=== PATIENT | female | born 1960 ===

== ENCOUNTER 2018-07-16 05:40 | Emergency (ER) | payer MEDICARE, MEDICAID ==
[2018-07-16 05:41] VITALS: BMI 34.7
[2018-07-16 06:01] VITALS: BP 157/90; PULSE 68; RESP 17; TEMP 100.6; O2SAT 100
--- NOTE | 2018-07-16 07:32 | ED PDOC ---
Arrival/HPI - General Chief Complaint: Pain, Chronic Time Seen by Provider: 07/16/18 07:18 Past Medical History - Past History Past History: Non-Contributing - Infectious Disease Hx of Infectious Diseases: ESL - Cardiac Hx Cardiac Arrhythmia: Yes Hx Hypertension: Yes Hx Pacemaker: Yes - Pulmonary Hx Respiratory Disorders: No - Neurological Hx Migraine: Yes Hx Multiple Sclerosis: Yes - HEENT Hx HEENT Disorder: No - Renal Hx Kidney Stones: Yes - Endocrine/Metabolic Hx Endocrine Disorders: Yes Hx Diabetes Mellitus Type 2: Yes - Hematological/Oncological Hx Anemia: Yes - Integumentary Hx Dermatological Disorder: No - Musculoskeletal/Rheumatological Hx Arthritis: Yes Hx Fractures: Yes (L RIB) Hx Osteoporosis: Yes - Gastrointestinal Hx Gastrointestinal Disorders: Yes (COLITIS) - Genitourinary/Gynecological Hx Genitourinary Disorders: Yes (MULTIPLE UTIS) Hx Reproductive Disorders: Yes (VAGINAL ITCH STILL) - Psychiatric Hx Anxiety: Yes Hx Bipolar Disorder: Yes Hx Depression: Yes Hx Substance Use: No - Surgical History Hx Gastric Bypass Surgery: Yes Hx Hysterectomy: Yes Other/Comment: pacemaker; fibroids removal; benign tumor removed from breast - Anesthesia Hx Anesthesia: Yes Hx Anesthesia Reactions: No Hx Malignant Hyperthermia: No Family/Social History Smoking Status: Never Smoked Hx Alcohol Use: No Hx Substance Use: No Hx Substance Use Treatment: No Allergies/Home Meds Allergies/Adverse Reactions: Allergies levofloxacin [From Levaquin] Allergy (Verified 07/14/18 16:34) RASH Physical Exam Vital Signs Temp Pulse Resp BP Pulse Ox 07/16/18 05:51 100.6 F H 68 17 157/90 H 100 Medical Decision Making - Lab Interpretations Lab Results: Lab Results 07/16/18 07:02: POC Glucose (mg/dL) 78 Disposition/Present on Arrival - Present on Arrival History of DVT/PE: No History of Uncontrolled Diabetes: No Urinary Catheter: No History Surgical Site Infection Following: None - Disposition
--- NOTE | 2018-07-16 07:39 | ED PDOC ---
HPI: General Adult Time Seen by Provider: 07/16/18 07:18 Chief Complaint (Nursing): Pain, Chronic Chief Complaint (Provider): Pain, Chronic History Per: Patient History/Exam Limitations: no limitations Additional Complaint(s): 58 years old female with history of multiple sclerosis, hypertension and depression presents to the ED for evaluation of generalized bodyaches associated with falling frequently. Patient reports last time she was seen at [facility] was last and was evaluated with CTs and x-rays, which all were negative. She states she hasn't been taking her medications for MS in the last two months. PMD: Dr. Rodriguez Past Medical History Reviewed: Historical Data, Nursing Documentation, Vital Signs Vital Signs: Last Vital Signs Temp 100.6 F H 07/16/18 05:51 Pulse 68 07/16/18 05:51 Resp 17 07/16/18 05:51 BP 157/90 H 07/16/18 05:51 Pulse Ox 100 07/16/18 07:56 - Medical History PMH: Anemia, Anxiety, Arthritis, Back Problems, Bipolar Disorder, Cardia Arrhythmia, Depression, Fibromyalgia, Fractures (L RIB), HTN, Hypercholesterolemia, Kidney Stones, Migraine, Multiple Sclerosis, Osteoporosis Denies: Chronic Kidney Disease - Surgical History Surgical History: Pacemaker - Family History Family History: States: Unknown Family Hx - Social History Current smoker - smoking cessation education provided: No Alcohol: None Drugs: Denies - Immunization History Hx Tetanus Toxoid Vaccination: No - Home Medications Home Medications: Ambulatory Orders Medication Instructions Recorded Folic Acid 1 mg PO DAILY tab 05/24/18 Multimineral/Multivitamin 1 tab PO 0800 tab 05/24/18 [Therapeutic-M Tab] LORazepam [Ativan] 1 mg PO BID #28 tab 06/01/18 Pantoprazole [Protonix EC Tab] 40 mg PO 0600 #30 ect 06/01/18 Venlafaxine [Effexor XR] 150 mg PO 0800 #14 cer 06/01/18 Zaleplon [Sonata] 10 mg PO HS PRN #14 cap 06/01/18 amLODIPine [Norvasc] 5 mg PO DAILY #30 tab 06/01/18 Ibuprofen [Motrin Tab] 800 mg PO Q6 PRN #20 tab 07/14/18 traMADol [Ultram] 50 mg PO Q8 #10 tab 07/16/18 - Allergies Allergies/Adverse Reactions: Allergies Allergy/AdvReac Type Severity Reaction Status Date / Time levofloxacin [From Levaquin] Allergy RASH Verified 07/14/18 16:34 Review of Systems ROS Statement: Except As Marked, All Systems Reviewed And Found Negative Constitutional: Positive for: Other (Bodyaches) Physical Exam - Reviewed Nursing Documentation Reviewed: Yes Vital Signs Reviewed: Yes - Physical Exam Appears: Positive for: Non-toxic, No Acute Distress Head Exam: Positive for: ATRAUMATIC, NORMOCEPHALIC Skin: Positive for: Normal Color, Warm, Dry Eye Exam: Positive for: Normal appearance Neck: Positive for: Normal, Painless ROM, Supple Cardiovascular/Chest: Positive for: Regular Rate, Rhythm. Negative for: Murmur Respiratory: Positive for: Normal Breath Sounds. Negative for: Respiratory Distress Gastrointestinal/Abdominal: Positive for: Normal Exam, Soft. Negative for: Tenderness Extremity: Positive for: Normal ROM, Other (Ecchymosis of right upper extremity) . Negative for: Swelling Neurologic/Psych: Positive for: Alert, Oriented (x3). Negative for: Motor/ Sensory Deficits - Laboratory Results Result Diagrams: 07/16/18 08:25 07/16/18 08:25 - ECG O2 Sat by Pulse Oximetry: 100 (RA) Pulse Ox Interpretation: Normal Medical Decision Making Medical Decision Making: Time: 743 Initial plan: --CBC --CMP --Toradol 30 mg IVP --Zofran 4 mg IVP Scribe Attestation: Documented by Tracie Martin, acting as a scribe for Toño Julian MD. Provider Scribe Attestation: All medical record entries made by the Scribe were at my direction and personally dictated by me. I have reviewed the chart and agree that the record accurately reflects my personal performance of the history, physical exam, medical decision making, and the department course for this patient. I have also personally directed, reviewed, and agree with the discharge instructions and disposition. Disposition - Clinical Impression Clinical Impression: Multiple sclerosis exacerbation - Patient ED Disposition Is Patient to be Admitted: No Counseled Patient/Family Regarding: Studies Performed, Diagnosis, Need For Followup, Rx Given - Disposition Referrals: Pratibha Wilson MD [Staff Provider] - Disposition: Routine/Home Disposition Time: 11:15 Condition: FAIR Prescriptions: traMADol [Ultram] 50 mg PO Q8 #10 tab Instructions: Multiple Sclerosis in Adults Forms: [employer] (Frisian)
[2018-07-16 09:06] LABS: BASO % 0.3 % (0.0-2.0); EOS % 1.3 % (0.0-4.0); HEMOGLOBIN 10.1 g/dL (12.0-16.0); LYMPH # 1.4 K/uL (1.0-4.3); LYMPH % 41.6 % (20.0-40.0); MEAN CELL VOLUME 96.2 fl (81.0-99.0); MEAN CORPUSCULAR HEMOGLOBIN 31.7 pg (27.0-31.0); MEAN CORPUSCULAR HGB CONC 32.9 g/dL (33.0-37.0); MEAN PLATELET VOLUME 9.3 fl (7.2-11.7); MONO # 0.3 K/uL (0.0-0.8); MONO % 10.5 % (0.0-10.0); NEUT # 1.5 K/uL (1.8-7.0); NEUT % 46.3 % (50.0-75.0); NRBC % 0.1 % (0.0-0.0); RBC 3.18 Mil/uL (3.80-5.20); RED CELL DISTRIBUTION WIDTH 13.1 % (11.5-14.5); WHITE BLOOD COUNT 3.3 K/uL (4.8-10.8)
[2018-07-16 09:09] LABS: ALBUMIN 3.1 g/dL (3.5-5.0); ALT/SGPT 34 U/L (9-52); AST/SGOT 29 U/L (14-36); BLOOD UREA NITROGEN 18 mg/dl (7-17); CALCIUM 8.3 mg/dL (8.4-10.2); GFR NON-AFRICAN AMERICAN > 60
== END 2018-07-16 13:37 | disposition home or self-care (01) ==
LOC: H.ER 05:40
DX: G35 Multiple sclerosis (principal); E78.00 Pure hypercholesterolemia, unspecified; M79.7 Fibromyalgia; I10 Essential (primary) hypertension; R29.6 Repeated falls; Z95.0 Presence of cardiac pacemaker
CPT/HCPCS: 80053; 82948; 85025; 96374; 96375; 99283; J1885; J2405; J2930

== ENCOUNTER 2018-07-21 02:25 | Emergency (ER) | payer MEDICARE, MEDICAID ==
[2018-07-21 02:25] VITALS: BMI 34.7
--- NOTE | 2018-07-21 03:12 | ED PDOC ---
HPI: Chest Pain Time Seen by Provider: 07/21/18 02:45 Chief Complaint (Nursing): Chest Pain Chief Complaint (Provider): Chest pain History Per: Patient, EMS History/Exam Limitations: no limitations Additional Complaint(s): 58yo male, with extensive past medical history including Anemia, Anxiety, Arthritis, Back Problems, Bipolar Disorder, Cardiac Arrhythmia, Depression, Fibromyalgia, HTN, Hypercholesterolemia, Kidney Stones, Migraine, Multiple Sclerosis, brought to ER by EMS with complaints of chest pain. Patient was recently discharged from this facility 1 hour ago and was also seen on 07/14/18 and 07/16/18. In her most recent visit, patient had lower extremity US which was normal. Currently, patient states she has diffuse bodyaches and deneis any chest pain or shortness of breath. She does report she has been off her MS medications however she just got her insurance and has a follow up scheduled with a PMD as well neurologist. Past Medical History Reviewed: Historical Data, Nursing Documentation, Vital Signs Vital Signs: Last Vital Signs Temp 97.8 F 07/21/18 03:02 Pulse 66 07/21/18 04:17 Resp 16 07/21/18 03:02 BP 127/78 07/21/18 03:02 Pulse Ox 99 07/21/18 04:17 - Medical History PMH: Anemia, Anxiety, Arthritis, Back Problems, Bipolar Disorder, Cardia Arrhythmia, Depression, Fibromyalgia, Fractures (L RIB), HTN, Hypercholesterolemia, Kidney Stones, Migraine, Multiple Sclerosis, Osteoporosis Denies: Chronic Kidney Disease - Surgical History Surgical History: Pacemaker - Family History Family History: States: Unknown Family Hx - Immunization History Hx Tetanus Toxoid Vaccination: No - Home Medications Home Medications: Ambulatory Orders Medication Instructions Recorded RX: Folic Acid 1 mg PO DAILY tab 05/24/18 RX: Multimineral/Multivitamin 1 tab PO 0800 tab 05/24/18 [Therapeutic-M Tab] RX: LORazepam [Ativan] 1 mg PO BID #28 tab 06/01/18 RX: Pantoprazole [Protonix EC Tab] 40 mg PO 0600 #30 ect 06/01/18 RX: Zaleplon [Sonata] 10 mg PO HS PRN #14 cap 06/01/18 RX: amLODIPine [Norvasc] 5 mg PO DAILY #30 tab 06/01/18 Venlafaxine [Effexor XR] 150 mg PO 0800 #14 cer 06/01/18 Ibuprofen [Motrin Tab] 800 mg PO Q6 PRN #20 tab 07/14/18 RX: traMADol [Ultram] 50 mg PO Q8 #10 tab 07/16/18 - Allergies Allergies/Adverse Reactions: Allergies Allergy/AdvReac Type Severity Reaction Status Date / Time levofloxacin [From Levaquin] Allergy RASH Verified 07/21/18 03:03 Review of Systems ROS Statement: Except As Marked, All Systems Reviewed And Found Negative Constitutional: Positive for: Malaise. Negative for: Fever, Chills Cardiovascular: Negative for: Chest Pain Respiratory: Negative for: Shortness of Breath Physical Exam - Reviewed Nursing Documentation Reviewed: Yes Vital Signs Reviewed: Yes - Physical Exam Appears: Positive for: Non-toxic Head Exam: Positive for: ATRAUMATIC, NORMAL INSPECTION, NORMOCEPHALIC Skin: Positive for: Normal Color Eye Exam: Positive for: Normal appearance Neck: Positive for: Supple Cardiovascular/Chest: Positive for: Regular Rate, Rhythm Respiratory: Positive for: Normal Breath Sounds Gastrointestinal/Abdominal: Positive for: Normal Exam, Soft Back: Positive for: Normal Inspection Extremity: Positive for: Normal ROM Neurologic/Psych: Positive for: Alert, Oriented - ECG ECG: Positive for: Interpreted By Me, Viewed By Me ECG Rhythm: Positive for: Atrial Paced Rate: 66 O2 Sat by Pulse Oximetry: 99 (RA) Pulse Ox Interpretation: Normal Medical Decision Making Medical Decision Making: Impression: Bodyaches, non-compliant with MS medications Plan: -- EKG -- Troponin -- Tramadol 50mg PO 04:17 On reassessment, patient reports feeling better and is stable for discharge home. Scribe Attestation: Documented by Sindy Colmenares, acting as a scribe for Sabina Branch MD Provider Scribe Attestation: All medical record entries made by the Scribe were at my direction and personally dictated by me. I have reviewed the chart and agree that the record accurately reflects my personal performance of the history, physical exam, medical decision making, and the department course for this patient. I have also personally directed, reviewed, and agree with the discharge instructions and disposition. Disposition - Clinical Impression Clinical Impression: Whole body pain - Patient ED Disposition Is Patient to be Admitted: No Counseled Patient/Family Regarding: Studies Performed, Diagnosis, Need For Foll owup - Disposition Referrals: Jd Rodriguez MD [Primary Care Provider] - Disposition: Routine/Home Disposition Time: 04:17 Condition: IMPROVED Additional Instructions: follow up with your primary doctor in 1-2 days return to the ED with any worsening or concerning symptoms Instructions: Acute Pain, Adult (DC) Forms: [employer] (Romansh)
[2018-07-21 03:14] VITALS: BP 127/78; RESP 16; TEMP 97.8; O2SAT 99
[2018-07-21 03:15] VITALS: PULSE 66
--- NOTE | 2018-07-21 07:42 | CARD ---
APPROVED REPORT Date of service: 07/21/2018 EKG Measurement Heart [id number] <Conclusion> Atrial-paced rhythm with premature atrial complexes Nonspecific ST abnormality Abnormal ECG
== END 2018-07-21 05:15 | disposition home or self-care (01) ==
LOC: H.ER 02:25
DX: M79.1 Myalgia (principal); I10 Essential (primary) hypertension; Z86.59 Personal history of other mental and behavioral disorders; Z87.442 Personal history of urinary calculi; G35 Multiple sclerosis

== ENCOUNTER 2018-08-31 14:16 | Emergency (ER) | payer MEDICARE, MEDICAID ==
[2018-08-31 14:16] VITALS: BMI 36.3
[2018-08-31] MEDS ORDERED: Sodium Chloride 0.9% 1,000 ML IV SCH (14:30)
--- NOTE | 2018-08-31 14:37 | ED PDOC ---
HPI:STROKE - Time Time: 14:31 - Historian Historian: Patient, EMS - Chief Complaint Chief Complaint: Slurred speech - Onset Date: 08/30/18 (time and date unclear) - TPA Positive for Contraindication: No Reason tPA is not being Administered: unclear time of onset - Notes: Notes:: Pt. states she was at a [employer]. Bystanders saw her wobbling so EMS called. She states her baseline is slurring speech. Is not new today. Denies wobbling. No nausea, vomit, diarrhea, weakness, abd pain, chest pain, dyspnea, injury to head or neck. EMS states pt. was wobbling. Pt. denies drugs or etoh. Per EMS, pt. with hx of drug abuse and taking more of her meds then usual. Not suicidal or homicidal. Unclear when pt. symptoms of wobbling started. Pt. denies wobbling. NIHSS Stroke Scale - Date/Time Evaluation Performed Date Performed: 08/31/18 Time Performed: 14:43 When Was NIHSS Performed: Baseline - How Severe is the Stroke Level of Consciousness: 1=Drowsy LOC to Questions: 0=Both comments correct LOC to commands: 0=Obeys both correctly Best Gaze: 0=Normal Visual: 0=No visual loss Facial: 0=Normal Motor Arm - Left: 1=Drift noted before 10 sec Motor Arm - Right: 1=Drift noted before 10 sec Motor Leg - Left: 1=Drift before 5 sec Motor Leg - Right: 1=Drift before 5 sec Limb Ataxia: 1=Present Upper or Lower Sensory: 0=Normal Best Language: 0=No aphasia Dysarthia: 1=Mild to moderate slurring Extinction & Inattention (Neglect): 0=Normal, no object Score: 7 rTPA Inclusion/Exclusion - Refusal of Treatment Patient Refused Treatment: No - Inclusion Criteria for Altepase Patient is 18 years or Older: Yes The Clinical Diagnosis of Ischemic Stroke That is Causing a Potentially Disabling Neurological Deficit: No Time of Onset is Well Established to be Less Than 270 Minute Before Treatment Would Begin: No Risk/Benefit Discussed With Patient/Family Member Present: No Past Medical History Vital Signs: Last Vital Signs Temp 98.1 F 08/31/18 14:21 Pulse 73 08/31/18 14:21 Resp 16 08/31/18 14:21 BP 131/52 L 11/01/18 14:21 Pulse Ox 92 L 08/31/18 14:21 - Medical History PMH: Anemia, Anxiety, Arthritis, Asthma, Back Problems, Bipolar Disorder, Cardia Arrhythmia, CHF, Depression, Fibromyalgia, Fractures (L RIB), HTN, Hypercholesterolemia, Kidney Stones, Migraine, Multiple Sclerosis, Osteoporosis Denies: Diabetes, Hepatitis, HIV, Chronic Kidney Disease, Seizures, Sexually Transmitted Disease - Surgical History Surgical History: Cholecystectomy, Pacemaker - Family History Family History: States: Unknown Family Hx - Immunization History Hx Tetanus Toxoid Vaccination: No - Home Medications Home Medications: Ambulatory Orders Medication Instructions Recorded Aspirin [Ecotrin] 81 mg PO DAILY #7 tabec 08/23/18 Atorvastatin [Lipitor] 40 mg PO DIN #7 tab 08/23/18 Fluticasone Nasal [Flonase] 1 actuation NS DAILY #1 spr 08/23/18 Folic Acid 1 mg PO DAILY #14 tab 08/23/18 Gabapentin [Neurontin] 300 mg PO TID #45 cap 08/23/18 Ibuprofen [Motrin Tab] 800 mg PO Q6H PRN #30 tab 08/23/18 Lidocaine 5% [Lidoderm] 1 ea TD DAILY #7 patch 08/23/18 Loperamide [Imodium] 4 mg PO DAILY #7 cap 08/23/18 Losartan [Cozaar] 50 mg PO DAILY #7 tab 08/23/18 Multivitamin Therapeutic Tab 1 tab PO 0800 #14 tab 08/23/18 [Thera Tab] Pantoprazole [Protonix EC Tab] 40 mg PO 0600 #7 ect 08/23/18 Quetiapine Fumarate [Seroquel] 50 mg PO HS #14 tablet 08/23/18 Venlafaxine [Effexor] 37.5 mg PO DAILY #14 tab 08/23/18 Venlafaxine [Effexor] 150 mg PO DAILY #14 tab 08/23/18 amLODIPine [Norvasc] 5 mg PO DAILY #7 tab 08/23/18 clonazePAM [Klonopin] 1 mg PO BID #30 tab 08/23/18 hydrOXYzine Pamoate [Vistaril] 50 mg PO BID PRN #30 cap 08/23/18 - Allergies Allergies/Adverse Reactions: Allergies Allergy/AdvReac Type Severity Reaction Status Date / Time levofloxacin [From Levaquin] Allergy RASH Verified 11/01/18 14:21 Review of Systems ROS Statement: Except As Marked, All Systems Reviewed And Found Negative Neurological: Positive for: Change in Speech Physical Exam - Reviewed Nursing Documentation Reviewed: Yes Vital Signs Reviewed: Yes - Physical Exam Appears: Positive for: Non-toxic, No Acute Distress Head Exam: Positive for: ATRAUMATIC, NORMAL INSPECTION, NORMOCEPHALIC Skin: Positive for: Normal Color, Warm, DRY Eye Exam: Positive for: EOMI, Normal appearance, PERRL ENT: Positive for: Normal ENT Inspection. Negative for: Nasal Congestion, Pharyngeal Erythema Neck: Positive for: Normal, Painless ROM, Supple Cardiovascular/Chest: Positive for: Regular Rate, Rhythm Respiratory: Positive for: CNT, Normal Breath Sounds Gastrointestinal/Abdominal: Positive for: Normal Exam, Soft. Negative for: Tenderness Back: Positive for: Normal Inspection. Negative for: L CVA Tenderness, R CVA Tenderness Extremity: Positive for: Normal ROM. 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 Julian to fu on labs, imaging, ekg and dispo. Disposition - Clinical Impression Clinical Impression: Altered mental status - Patient ED Disposition Is Patient to be Admitted: Transfer of Care - Disposition Disposition Time: 14:49 Condition: FAIR Patient Signed Over To: Toño Julian
[2018-08-31] MEDS ORDERED: Albuterol-Ipratrop 3 mg / 0.5 (3 ml) UD IH STA (14:46)
--- NOTE | 2018-08-31 14:55 | RAD ---
Date of service: 08/31/2018 HISTORY: Code Stroke COMPARISON: 07/20/2018. FINDINGS: The right MediPort terminates at the cavoatrial junction. LUNGS: The lungs are well inflated and clear. PLEURA: No pleural effusions or pneumothorax. CARDIOVASCULAR: There is mild cardiomegaly. There is stable position of left-sided permanent pacing device. Atherosclerotic aortic arch calcifications are present. OSSEOUS STRUCTURES: Within normal limits for the patient's age. VISUALIZED UPPER ABDOMEN: Normal. OTHER FINDINGS: None. IMPRESSION: No acute findings.
[2018-08-31 15:06] LABS: INR 1.1
[2018-08-31 15:12] LABS: VENOUS BLOOD GAS BASE EXCESS 1.7 mmol/L (0.0-2.0); VENOUS BLOOD GAS PCO2 45 mmHg (40-60); VENOUS BLOOD GAS PO2 40 mm/Hg (30-55); VENOUS BLOOD PH 7.39 (7.32-7.43)
[2018-08-31 15:12] LABS: ALBUMIN 3.3 g/dL (3.5-5.0); ALT/SGPT 27 U/L (9-52); AST/SGOT 24 U/L (14-36); BLOOD UREA NITROGEN 20 mg/dl (7-17); CALCIUM 8.6 mg/dL (8.4-10.2); GFR NON-AFRICAN AMERICAN 57; HDL CHOLESTEROL 52 MG/DL (30-70)
[2018-08-31 15:14] LABS: ACETAMINOPHEN < 10.0 ug/ml (10.0-30.0); SALICYLATE < 1.0 mg/dl
[2018-08-31] MEDS ORDERED: Albuterol-Ipratrop 3 mg / 0.5 (3 ml) UD ONE (15:22)
[2018-08-31 15:23] LABS: LDL CHOLESTEROL 68 mg/dL (0-129)
[2018-08-31 15:26] LABS: B-TYPE NATRIURETIC PEPTIDE 704 pg/ml (0-900)
--- NOTE | 2018-08-31 15:30 | ED PDOC ---
- Laboratory Results Result Diagrams: 08/31/18 14:50 08/31/18 14:50 - ECG O2 Sat by Pulse Oximetry: 92 (improved with oxygen) Pulse Ox Interpretation: Normal - Progress Re-evaluation Time: 23:00 Condition: Improved (Evaluated by psych denies ingestion feels that sxs are secondary to MS exacerbation) Medical Decision Making Medical Decision Makin:00 --Patient endorsed to this provider by Dr. Saleh pending CT, labs and reevaluation. Disposition - Clinical Impression Clinical Impression: Altered mental status, Multiple sclerosis exacerbation - POA Present On Arrival: None - Disposition Referrals: Titi Treadwell MD [Medical Doctor] - Disposition: Routine/Home Disposition Time: 23:01 Condition: FAIR Instructions: Multiple Sclerosis in Adults Forms: [employer] (Bangladeshi)
[2018-08-31 15:47] LABS: BASO % 0.5 % (0.0-2.0); EOS # 0.1 K/uL (0.0-0.7); EOS % 5.3 % (0.0-4.0); HEMOGLOBIN 8.9 g/dL (12.0-16.0); LYMPH # 0.8 K/uL (1.0-4.3); LYMPH % 31.9 % (20.0-40.0); MEAN CELL VOLUME 95.3 fl (81.0-99.0); MEAN CORPUSCULAR HEMOGLOBIN 30.7 pg (27.0-31.0); MEAN CORPUSCULAR HGB CONC 32.2 g/dL (33.0-37.0); MEAN PLATELET VOLUME 8.8 fl (7.2-11.7); MONO # 0.2 K/uL (0.0-0.8); MONO % 8.6 % (0.0-10.0); NEUT # 1.4 K/uL (1.8-7.0); NEUT % 53.7 % (50.0-75.0); NRBC % 0.1 % (0.0-0.0); RBC 2.89 Mil/uL (3.80-5.20); RED CELL DISTRIBUTION WIDTH 13.3 % (11.5-14.5); WHITE BLOOD COUNT 2.6 K/uL (4.8-10.8)
--- NOTE | 2018-08-31 16:28 | CT ---
Date of service: 08/31/2018 PROCEDURE: CT HEAD WITHOUT CONTRAST. HISTORY: mental status changes COMPARISON: None available. TECHNIQUE: Axial computed tomography images were obtained through the head/brain without intravenous contrast. Radiation dose: Total exam DLP = 791.18 mGy-cm. This CT exam was performed using one or more of the following dose reduction techniques: Automated exposure control, adjustment of the mA and/or kV according to patient size, and/or use of iterative reconstruction technique. FINDINGS: HEMORRHAGE: No intracranial hemorrhage. BRAIN: No mass effect or edema. Atrophy. Chronic microvascular ischemic changes. Bilateral basal ganglia lacunar infarctions. VENTRICLES: Unremarkable. No hydrocephalus. CALVARIUM: Unremarkable. PARANASAL SINUSES: Mild right maxillary sinus mucosal thickening. MASTOID AIR CELLS: Unremarkable as visualized. No inflammatory changes. OTHER FINDINGS: None. IMPRESSION: No acute intracranial pathology. Age-related changes.
[2018-08-31 19:52] LABS: BENZODIAZEPINES, UR NEGATIVE (NEGATIVE); PHENCYCLIDINE, UR NEGATIVE (NEGATIVE)
[2018-08-31 19:54] LABS: BARBITURATES, UR NEGATIVE (NEGATIVE); OPIATES, UR NEGATIVE (NEGATIVE)
[2018-08-31 19:56] LABS: URINE BILIRUBIN NEGATIVE (NEGATIVE); URINE BLOOD NEGATIVE (NEGATIVE); URINE CLARITY SLIGHTY-CLOUDY (Clear); URINE COLOR YELLOW (YELLOW); URINE GLUCOSE (UA) NEG (Normal); URINE LEUKOCYTE ESTERASE NEG Leu/uL (Negative); URINE PROTEIN NEGATIVE (NEGATIVE); URINE UROBILINOGEN 0.2-1.0 mg/dL (0.2-1.0)
[2018-09-01 06:06] VITALS: BP 123/71; PULSE 66; RESP 18; TEMP 98; O2SAT 97
--- NOTE | 2018-09-01 13:39 | CARD ---
APPROVED REPORT Date of service: 08/31/2018 EKG Measurement Heart [id number] [id number] <Conclusion> Normal sinus rhythm Prolonged QT Abnormal ECG
== END 2018-09-01 06:28 | disposition home or self-care (01) ==
LOC: H.ER 14:16
DX: R41.82 Altered mental status, unspecified (principal); G35 Multiple sclerosis
CPT/HCPCS: 70450; 71045; 80053; 80061; 80320; 80324; 80329; 80345; 80346; 80349; 80353; 80358; 80361; 81003; 82803; 82948; 83036; 83880; 83992; 84484; 85025; 85610; 85730; 86850; 86900; 93005; 94640; 99285; J7030; Q0177